=== PATIENT | female | born 1990 | race Caucasian/White ===

== ENCOUNTER 2017-11-24 08:20 | Emergency (ER) | payer BC ==
[~2017-11-24] VITALS: Ht 172.7 cm; Wt 61.2 kg
[2017-11-24 08:26] VITALS: BP_SYST 137
--- NOTE | 2017-11-24 08:30 | NUR ---
LINCOLN DEL RIO at [facility] for eval. Addendum: 11/24/17 at 0944 by [email or web address] LINCOLN DEL RIO at bedside at 0838.
--- NOTE | 2017-11-24 08:32 | NUR ---
Patient to ER bed 5 to gown for evaluation. Side rails up. Report given to Yesenia MENDEZ.
[2017-11-24] MEDS ORDERED: NACL 0.9% 1,000 ML IV ONE (08:37)
[2017-11-24] MEDS ORDERED: MORPHINE 4 MG/ML INJ. SYRINGE IVP ONE ×2 (08:45→11:30)
[2017-11-24] MEDS ORDERED: ONDANSETRON HCL 4 MG/2 ML VIAL IVP ONE (08:45)
--- NOTE | 2017-11-24 08:45 | NUR ---
To CT scan.
[2017-11-24 08:52] LABS: BILIRUBIN,URINE NEGATIVE (NEGATIVE); BLOOD, URINE NEGATIVE (NEGATIVE); CLARITY/URINE CLEAR (CLEAR); COLOR,URINE YELLOW (YELLOW); GLUCOSE,URINE NEGATIVE (NEGATIVE); KETONES,URINE NEGATIVE (NEGATIVE); LEUKOCYTE ESTERASE ,URINE NEGATIVE (NEGATIVE); NITRITE, URINE NEGATIVE (NEGATIVE); PROTEIN URINE NEGATIVE (NEGATIVE); UROBILINOGEN,URINE 0.2 (0.2-1.0)
[2017-11-24 09:07] LABS: BASOPHILS % (AUTO) 0.9 % (0.0-2.0); EOSINOPHILS # (AUTO) 0.1 K/uL (0.0-0.4); EOSINOPHILS % (AUTO) 1.8 % (0.0-4.0); HEMATOCRIT 37.2 % (36-48); HEMOGLOBIN 12.1 g/dL (12.0-16.0); LYMPHOCYTES # (AUTO) 2.9 K/uL (1.0-5.5); LYMPHOCYTES % (AUTO) 58.6 % (20.5-51.5); MEAN CORPUSCULAR HEMOGLOBIN 26 pg (27-31); MEAN CORPUSCULAR HGB CONC 33 % (32-36); MEAN CORPUSCULAR VOLUME 79 fL (79.0-98.0); MONOCYTES # (AUTO) 0.5 K/uL (0.0-1.0); MONOCYTES % (AUTO) 9.8 % (1.7-9.3); NEUTROPHILS # (AUTO) 1.4 K/uL (1.8-7.7); NEUTROPHILS % (AUTO) 28.9 % (40.0-70.0); PLATELET COUNT (AUTO) 265 K/uL (130-430); RED BLOOD CELL COUNT(AUTO) 4.71 MIL/uL (4.2-6.2); RED CELL DISTRIBUTION WIDTH 12.1 % (9.0-15.0); WHITE BLOOD COUNT (AUTO) 4.9 K/uL (4.8-10.8)
[2017-11-24 09:10] LABS: CALCIUM 8.9 mg/dL (8.4-11.0); CREATININE 0.68 mg/dL (0.55-1.30); POTASSIUM 3.9 mmol/L (3.5-5.1)
[2017-11-24 09:14] LABS: ALBUMIN 3.6 g/dL (3.4-4.8); INR 0.9 (0.8-1.2); PROTHROMBIN TIME 9.3 SECS (9.5-12.5); TOTAL BILIRUBIN 0.1 mg/dL (0.0-1.0)
--- NOTE | 2017-11-24 09:43 | NUR ---
ER MD at bedside for digital pelvic exam with female director mobile.
--- NOTE | 2017-11-24 11:00 | NUR ---
pt kept updated about continued wait for rest results.
[2017-11-24] MEDS ORDERED: DIPHENHYDRAMINE INJ 50 MG/ML VIAL IVP ONE (11:30)
--- NOTE | 2017-11-24 12:05 | NUR ---
pt c/o continued abd pain. medicated with morphine and benadryl.
--- NOTE | 2017-11-24 12:30 | NUR ---
PT INDICATED PAIN MED HELPFUL AND RATES HER PAIN 4/10.
--- NOTE | 2017-11-24 14:33 | NUR ---
Patient given written and verbal discharge instructions and verbalizes understanding. ER MD discussed with patient the results and treatment provided. Patient in stable condition. ID arm band removed. IV catheter removed intact and dressing applied, no active bleeding. Rx of TYLENOL AND ZOFRAN given. Patient educated on pain management and to follow up with PMD. Pain Scale . Opportunity for questions provided and answered. Medication side effect fact sheet provided. Pt discharged home with mom and ambulated to car.
[2017-11-24 14:35] VITALS: BP_SYST 130
== END 2017-11-24 14:33 | disposition home or self-care (01) ==
LOC: SED 08:20
DX: N83.201 Unspecified ovarian cyst, right side (principal)
CPT/HCPCS: 36415; 74176; 80053; 81003; 81025; 82150; 83690; 85025; 85610; 96361; 96374; 96375; 96376; 99285; J1200; J2270; J2405; J7030